=== PATIENT | male | born 2005 | race Caucasian/White ===

== ENCOUNTER 2024-04-17 20:16 | Emergency (ER) | payer OTHER ==
[~2024-04-17] VITALS: Ht 165.1 cm; Wt 79.5 kg
[2024-04-17 20:53] LABS: HEMATOCRIT 50.1 % (42.0-52.0); HEMOGLOBIN 16.6 g/dl (13.5-17.5); MEAN CORPUSCULAR HGB CONC 33.1 g/dl (32.0-36.5); MEAN CORPUSCULAR VOLUME 84.5 fl (80.0-96.0); PLATELET COUNT, AUTOMATED 410 10^3/uL (150-450); RED BLOOD COUNT 5.93 10^6/uL (4.30-6.10); WHITE BLOOD COUNT 9.3 10^3/uL (4.0-10.0)
[2024-04-17 21:18] LABS: AMPHETAMINES LEVEL URINE NEGATIVE (NEGATIVE); BARBITURATES URINE NEGATIVE (NEGATIVE); BENZODIAZEPINES URINE NEGATIVE (NEGATIVE); CANNABINOIDS URINE NEGATIVE (NEGATIVE); COCAINE METABOLITE URINE NEGATIVE (NEGATIVE); METHADONE URINE NEGATIVE (NEGATIVE); OPIATES URINE NEGATIVE (NEGATIVE); PHENCYCLIDINE URINE NEGATIVE (NEGATIVE)
[2024-04-17 21:20] LABS: ETHYL ALCOHOL (ETHANOL) 0.105 % (0.000-0.010)
[2024-04-17 21:22] LABS: ALBUMIN 4.4 G/DL (3.2-5.2); ALKALINE PHOSPHATASE 54 U/L (46-116); ALT/SGPT 284 U/L (7.0-40); AST/SGOT 154 U/L (<34); BILIRUBIN,DIRECT 0.1 MG/DL (<0.4); BILIRUBIN,TOTAL 0.5 MG/DL (0.3-1.2); BLOOD UREA NITROGEN 9 MG/DL (9-23); CALCIUM LEVEL 9.5 MG/DL (8.5-10.1); CARBON DIOXIDE LEVEL 24 MMOL/L (20-31); CHLORIDE LEVEL 107 MMOL/L (98-107); CREATININE FOR GFR 0.96 MG/DL (0.70-1.30); GLUCOSE, FASTING 101 MG/DL (60-100); POTASSIUM SERUM 4.3 MMOL/L (3.5-5.1); SALICYLATE LEVEL < 3.0 MG/DL (<30); SODIUM LEVEL 142 MMOL/L (136-145); TOTAL PROTEIN 7.8 G/DL (5.7-8.2)
[2024-04-17 21:24] LABS: THYROID STIMULATING HORMONE 1.866 uIU/ML (0.48-4.17)
[2024-04-18] MEDS ORDERED: HOME MED LIST COMPLETE! XX SCH (00:55)
[2024-04-18 10:44] VITALS: BP 162/89; TEMP 98.7; O2SAT 98
== END 2024-04-18 10:48 ==
LOC: M ED 20:16
DX: F32.A Depression, unspecified (principal); R45.851 Suicidal ideations; F10.10 Alcohol abuse, uncomplicated

== ENCOUNTER 2025-05-30 06:35 | Emergency (ER) | payer OTHER ==
[~2025-05-30] VITALS: Ht 165.1 cm; Wt 83.0 kg
[2025-05-30 08:55] LABS: BASO # 0.0 10^3/uL (0.0-0.2); BASO % 0.4 % (0.0-1.0); EOS # 0.1 10^3/uL (0.0-0.5); EOS % 1.6 % (0.0-3.0); LYMPH # 1.1 10^3/uL (1.5-5.0); LYMPH % 13.8 % (24.0-44.0); MONO # 0.9 10^3/uL (0.0-0.8); MONO % 11.3 % (2.0-8.0); NEUTROPHILS # 5.8 10^3/uL (1.5-8.5); NEUTROPHILS % 72.7 % (36.0-66.0); PLATELET COUNT, AUTOMATED 282 10^3/uL (150-450)
[2025-05-30 09:04] LABS: ERYTHROCYTE SEDIMENTATION RATE 40 mm/hr (0-15)
[2025-05-30 09:10] LABS: APPEARANCE, URINE CLEAR (CLEAR); BACTERIA, URINE AUTO NEGATIVE (NEGATIVE); BILIRUBIN, URINE AUTO NEGATIVE (NEGATIVE); BLOOD, URINE BLOOD 1+ (NEGATIVE); GLUCOSE, URINE (UA) AUTO NEGATIVE (NEGATIVE); KETONE, URINE AUTO NEGATIVE (NEGATIVE); LEUKOCYTE ESTERASE, URINE AUTO NEGATIVE (NEGATIVE); NITRITE, URINE AUTO NEGATIVE (NEGATIVE); PROTEIN, URINE AUTO 2+ mg/dL (NEGATIVE); RBC, URINE AUTO 2 /HPF (0-3); SPECIFIC GRAVITY URINE AUTO 1.005 (1.002-1.035); SQUAMOUS EPITHELIAL CELL UR AU 0 /HPF (0-6); UROBILINOGEN, URINE AUTO 0.2 mg/dL (0.0-2.0); WBC, URINE AUTO 4 /HPF (0-3)
[2025-05-30 09:34] LABS: C REACTIVE PROTEIN QUANTITATIV 4.07 MG/DL (<1.0)
[2025-05-30 09:35] LABS: ALT/SGPT 42.0 U/L (7.0-40); AST/SGOT 29.0 U/L (<34); CALCIUM LEVEL 8.9 MG/DL (8.5-10.1); CARBON DIOXIDE LEVEL 28.0 MMOL/L (20-31); CHLORIDE LEVEL 104.0 MMOL/L (98-107); CREATININE FOR GFR 1.57 MG/DL (0.70-1.30); GLOMERULAR FILTRATION RATE 63.9 (>60); POTASSIUM SERUM 4.6 MMOL/L (3.5-5.1); SODIUM LEVEL 143.0 MMOL/L (136-145)
[2025-05-30] MEDS ORDERED: ISOVUE-370 76% 100 ML VIAL As Ordered ONE (10:02)
[2025-05-30] MEDS: ONDANSETRON 4MG 2ML VIAL IV ONE (11:47)
[2025-05-30] MEDS ORDERED: SUCR1TA PO (12:22)
[2025-05-30] MEDS ORDERED: PRED10TA2 PO (12:22)
[2025-05-30] MEDS ORDERED: ONDA-282 PO (12:22)
[2025-05-30] MEDS ORDERED: OMEP40CA4 PO (12:22)
[2025-05-30 12:30] VITALS: BP 141/79; TEMP 97.5; O2SAT 97
== END 2025-05-30 12:41 | disposition home or self-care (01) ==
LOC: MERGE 06:35 → M ED 06:35
DX: R10.9 Unspecified abdominal pain (principal); K82.8 Other specified diseases of gallbladder; Z79.83 Long term (current) use of bisphosphonates; Z79.52 Long term (current) use of systemic steroids; Z79.899 Other long term (current) drug therapy
CPT/HCPCS: 74174; 76705; 80053; 81001; 83605; 85025; 85652; 86140; 96374; 99284; J2405; Q9967

== ENCOUNTER 2025-06-20 10:50 | Emergency (ER) | payer OTHER ==
[~2025-06-20] VITALS: Ht 165.1 cm; Wt 84.4 kg
[~2025-06-20 10:50] MED LIST: OMEP40CA4 PO; ONDA-282 PO; PRED10TA2 PO; SUCR1TA PO
[2025-06-20 12:02] LABS: PLATELET COUNT, AUTOMATED 282 10^3/uL (150-450)
[2025-06-20 12:30] VITALS: BP 164/85; TEMP 98.8; O2SAT 98
[2025-06-20 12:34] LABS: ALT/SGPT 58 U/L (7.0-40); AST/SGOT 52 U/L (<34); CALCIUM LEVEL 9.7 MG/DL (8.5-10.1); CARBON DIOXIDE LEVEL 24 MMOL/L (20-31); CHLORIDE LEVEL 107 MMOL/L (98-107); CREATININE FOR GFR 0.89 MG/DL (0.70-1.30); GLOMERULAR FILTRATION RATE > 90.0 (>60); POTASSIUM SERUM 4.4 MMOL/L (3.5-5.1); SODIUM LEVEL 139 MMOL/L (136-145)
[2025-06-20] MEDS ORDERED: MIRA3350 PO (12:40)
[2025-06-20] MEDS ORDERED: ANUS25SU PR (12:40)
== END 2025-06-20 12:48 | disposition home or self-care (01) ==
LOC: M ED 10:50
DX: K92.2 Gastrointestinal hemorrhage, unspecified (principal); R74.01 Elevation of levels of liver transaminase levels; F17.200 Nicotine dependence, unspecified, uncomplicated; Z79.899 Other long term (current) drug therapy; Z79.52 Long term (current) use of systemic steroids; Z79.83 Long term (current) use of bisphosphonates